=== PATIENT | male | born 1965 | race Caucasian/White ===

== ENCOUNTER → 2016-09-15 | Outpatient (CLI) | payer OTHER ==
[~2016-09-15] MED LIST: CHOL20009 PO; GLUCTAB7 PO; MULT1CHW18 PO; POTA1TAB PO
[2016-09-15 12:08] LABS: BASO % 0.3 %; BASO ABS # 0.02 K/uL (0-0.2); COMPLETE YES; HEMATOCRIT 48.4 % (42-52); IG% 0.6 %; LYMPH % 37.1 %; LYMPH ABS # 2.54 K/uL (1.2-3.4); MEAN CELL VOLUME 91.3 fL (80-100); MEAN CORPUSCULAR HEMOGLOBIN 31.7 pg (25-34); MEAN CORPUSCULAR HGB CONC 34.7 g/dl (32-36); MEAN PLATELET VOLUME 11.7 fL (7.4-10.4); MONO % 7.9 %; NEUT % 52.1 %; PLATELET COUNT 137 K/uL (130-400); WHITE BLOOD COUNT 6.84 K/uL (4.8-10.8)
[2016-09-15 12:27] LABS: URINE APPEARANCE CLEAR (CLEAR); URINE BILIRUBIN NEG (NEG); URINE COLOR YELLOW; URINE EPITHELIAL CELL AUTO 0-5 /lpf (0-5); URINE NITRITE NEG (NEG); UROBILINOGEN NEG (NEG); ZZUR CULT IF INDIC CLEAN CATCH NO
[2016-09-15 12:30] LABS: MANUAL MICROSCOPIC REQUIRED? NO; REVIEW REQ? NO
[2016-09-15 12:38] LABS: ESTIMATED AVERAGE GLUCOSE 108 mg/dl; HA1C FLAG Normal (Normal)
[2016-09-15 12:43] LABS: BLOOD UREA NITROGEN 21 mg/dl (7-18); BUN/CREATININE RATIO 23.6 (10-20); CALCIUM 9.2 mg/dl (8.5-10.1); CARBON DIOXIDE 26 mmol/L (21-32); CHLORIDE 106 mmol/L (98-107); CHOLESTEROL 164 mg/dl (0-200); CREATININE 0.89 mg/dl (0.60-1.40); GLUCOSE 86 mg/dl (70-99); POTASSIUM 4.1 mmol/L (3.5-5.1); SODIUM 141 mmol/L (136-145); TRIGLYCERIDES 123 mg/dl (0-150); VERY LOW DENSITY LIPOPROT CALC 25 mg/dl
[2016-09-15 12:46] LABS: CHOLESTEROL/HDL RATIO 3.5; HDL CHOLESTEROL 47 mg/dl; LDL CHOLESTEROL CALCULATED 92 mg/dl
== END | disposition home or self-care (01) ==
LOC: C.LABBFT 07:42
PROVIDERS: ATTEND Internal Medicine
DX: R73.09 Other abnormal glucose (principal); Z12.11 Encounter for screening for malignant neoplasm of colon; E55.9 Vitamin D deficiency, unspecified

== ENCOUNTER → 2016-10-03 | Outpatient (CLI) | payer OTHER | END | disposition home or self-care (01) | LOC: C.LABBFT 15:38 | PROVIDERS: ATTEND Internal Medicine | DX: N40.0 Benign prostatic hyperplasia without lower urinary tract symptoms (principal) ==

== ENCOUNTER → 2017-10-18 | Outpatient (CLI) | payer OTHER ==
[2017-10-18 12:24] LABS: BASO % 0.1 %; BASO ABS # 0.01 K/uL (0-0.2); EOS % 2.4 %; EOS ABS # 0.17 K/uL (0-0.5); HEMATOCRIT 48.1 % (42-52); HEMOGLOBIN 16.3 g/dL (14.0-18.0); IG# 0.03 K/uL (0.00-0.02); LYMPH % 35.6 %; LYMPH ABS # 2.57 K/uL (1.2-3.4); MEAN CELL VOLUME 91.6 fL (80-100); MEAN CORPUSCULAR HGB CONC 33.9 g/dl (32-36); MEAN PLATELET VOLUME 11.1 fL (7.4-10.4); MONO % 7.6 %; MONO ABS # 0.55 K/uL (0.11-0.59); NEUT % 53.9 %; NEUT ABS # 3.88 K/uL (1.4-6.5); PLATELET COUNT 141 K/uL (130-400); RED CELL DISTRIBUTION WIDTH CV 13.7 % (11.5-14.5); RED CELL DISTRIBUTION WIDTH SD 46.3 fL (36.4-46.3); WHITE BLOOD COUNT 7.21 K/uL (4.8-10.8)
[2017-10-18 12:27] LABS: BLOOD UREA NITROGEN 19 mg/dl (7-18); CALCIUM 8.8 mg/dl (8.5-10.1); CARBON DIOXIDE 29 mmol/L (21-32); CHOLESTEROL 180 mg/dl (0-200); CREATININE 0.97 mg/dl (0.60-1.40); GLUCOSE 82 mg/dl (70-99); POTASSIUM 4.1 mmol/L (3.5-5.1); SODIUM 139 mmol/L (136-145)
[2017-10-18 12:28] LABS: HEMOGLOBIN A1C 5.4 % (4.5-5.6)
[2017-10-18 12:38] LABS: LDL CHOLESTEROL CALCULATED 111 mg/dl
== END | disposition home or self-care (01) ==
LOC: C.LABBFT 07:04
PROVIDERS: ATTEND Internal Medicine
DX: Z13.6 Encounter for screening for cardiovascular disorders (principal); R73.03 Prediabetes; Z12.5 Encounter for screening for malignant neoplasm of prostate; N40.0 Benign prostatic hyperplasia without lower urinary tract symptoms

== ENCOUNTER → 2018-01-31 | Outpatient (CLI) | payer OTHER ==
--- NOTE | 2018-01-31 16:25 | DIAGNOSTIC IMAGING REPORT ---
ORBITS FOR MRI HISTORY: Pre-MRI pre-MRI screening. COMPARISON: None. FINDINGS: There are no radiopaque foreign bodies identified within the orbits. IMPRESSION: No radiopaque foreign bodies identified within the orbits. The above report was generated using voice recognition software. It may contain grammatical, syntax or spelling errors. Electronically signed by: González Bay M.D. 01/31/2018 4:24 PM Dictated Date/Time: 01/31/2018 4:23 PM
--- NOTE | 2018-01-31 17:23 | DIAGNOSTIC IMAGING REPORT ---
R UPPER EXT JOINT WITHOUT CLINICAL HISTORY: RT SHOULDER PAIN,ROTATOR CUFF TEAR pain TECHNIQUE: Multiaxial MRI acquisition COMPARISON STUDY: None FINDINGS: Moderate generalized degenerative change of the glenohumeral joint. There is good contact between the acromion and articular services of the humeral head. There are hypertrophic changes of the acromioclavicular joint creating considerable impingement. Full-thickness tear of the supraspinatus tendon with evidence for musculotendinous retraction and mild fatty replacement of the supraspinatus muscle. Estimated retraction is 3.5 cm with this felt to be chronic. Moderate infraspinatus tendinopathy. Subscapularis tendon is intact. The biceps tendon is intact within the bicipital groove. Mild degenerative substance change of the glenoid labrum. IMPRESSION: 1. Chronic rotator cuff tear with evidence for full-thickness tear of the supraspinatus tendon and associated musculotendinous retraction. 2. Hypertrophic changes acromioclavicular joint creating impingement. 3. Moderate tendinopathy of the infraspinatus tendon with a potential partial thickness tear. 4. Subscapularis tendon is intact. . Moderate generalized degenerative changes of the articular services of the glenohumeral joint. The above report was generated using voice recognition software. It may contain grammatical, syntax or spelling errors. Electronically signed by: González Bay M.D. 01/31/2018 5:22 PM Dictated Date/Time: 01/31/2018 5:18 PM
== END | disposition home or self-care (01) ==
LOC: C.MRIBC 15:49
PROVIDERS: ATTEND Orthopaedic Surgery
DX: S46.011A Strain of muscle(s) and tendon(s) of the rotator cuff of right shoulder, initial encounter (principal); X58.XXXA Exposure to other specified factors, initial encounter

== ENCOUNTER 2025-03-30 18:49 | Inpatient (IN) ==
[2025-03-30 19:30] LABS: Hematocrit (blood only) 52.3 % (42.0-52.0); Hemoglobin 17.5 g/dl (14.0-18.0); Immature Granulocytes # (auto) 0.07 K/uL (0.01-0.20); Immature Granulocytes % (auto) 0.6 %; Mean Corpuscular Hemoglobin 30.4 pg (25.0-34.0); Mean Corpuscular Volume 90.8 fL (80.0-100.0); Platelet Count 201 K/uL (130-400); RDW Standard Deviation 49.3 fL (36.4-46.3); Red Blood Count 5.76 M/uL (4.70-6.10); White Blood Count 12.54 K/ul (4.8-10.8)
[2025-03-30 19:47] LABS: Anion Gap 8.0 (3-11); Blood Urea Nitrogen 24.0 mg/dl (6-23); Carbon Dioxide 30.0 mmol/L (21-32); Chloride 102.0 mmol/L (98-107); Potassium 4.3 mmol/L (3.5-5.1); Sodium 140.0 mmol/L (136-145)
[2025-03-30 19:48] LABS: Alanine Aminotransferase 34.0 U/L (7-52); Albumin Globulin Ratio 1.1 (0.9-2); Albumin Level 4.4 gm/dl (3.4-5.0); Alkaline Phosphatase 88.0 U/L (34-104); Bilirubin,Total 0.7 mg/dl (0.2-1.0); Calcium 9.8 mg/dl (8.6-10.3); Creatinine Clr Calc Pharmacy 66.3 ml/min; Globulin 3.9 gm/dl (2.5-4.0); Glucose 123.0 mg/dl (70-99(Fasting)); Lipase 44.0 U/L (11-82); Total Protein 8.3 gm/dl (6.0-8.3)
[2025-03-30 19:58] LABS: Appearance Urine Clear (Clear); Bacteria Urine Automated 1+ (None Seen); Epithelial Cell Urine Auto 0-2 /hpf (0-2); Glucose Urine UA Negative (Negative); RBC Urine Automated 0-2 /hpf (0-2); WBC Urine Automated >50 /hpf (0-5)
[2025-03-30 19:59] LABS: Cast Urine Automated 0-2 /lpf (0-2)
[2025-03-30] MEDS: SODIUM CHLORIDE 0.9% 1,000 ML IV ONE (20:43)
[2025-03-30] MEDS: cefTRIAXone SODIUM 2,000 MG/50 ML BAG IV STA (20:44)
[2025-03-30] MEDS: PROMETHAZINE 6.25 MG/50.25 ML BAG IV STA (21:00)
[2025-03-30] MEDS: ONDANSETRON INJ 2 MG/ML 2 ML VIAL IV STA (21:02)
[2025-03-30 21:05] LABS: Magnesium 2.3 mg/dl (1.7-2.4)
[2025-03-30] MEDS: MoRPHine SULFATE 4 MG/ML 1 ML CARP\\VIAL IV STA (21:05)
--- NOTE | 2025-03-30 21:07 | Emergency Department Note ---
Impression & Plan SBO (small bowel obstruction), Vomiting, Leukocytosis, Acute UTI, Acute kidney injury ED Provider Note NAME: ROCHELLE WRIGHT AGE: 59 SEX: M : 1965 ARRIVES VIA: Walk-In INFORMANT: [Patient] ED PROVIDER(S): [Vikash Gomez MD] CHIEF COMPLAINT: Abdominal pain, vomiting HISTORY OF PRESENT ILLNESS: The patient is a 59-year-old male whose had 2 days of abdominal bloating, diffuse abdominal pain and vomiting. He has vomited bile. He thought he had food poisoning as he ate some leftovers and afterwards, began to feel poorly. There has been no cough, no fever, no shortness of breath. He does have some loose stools but he would not say it is diarrhea. No urinary complaints. The patient has a history of a previous appendectomy. He still has his gallbladder. PMHx/PSHx/Social Hx: See Below PHYSICAL EXAM: GENERAL: Patient is in no acute distress. HEENT: No acute trauma, normocephalic atraumatic, mucous membranes moist, no nasal congestion. NECK: No stridor, no adenopathy, no meningismus, trachea is midline. LUNGS: Clear to auscultation bilaterally, no wheeze, no rhonchi, breath sounds equal. HEART: Without murmurs gallops or rubs, regular rate and rhythm. ABDOMEN: Firm and distended abdomen. Tender diffusely. EXTREMITIES: No cyanosis, full range of motion of all the joints without pain or difficulty. Mild bilateral pedal edema. NEUROLOGIC: Oriented x 3, no acute motor or sensory deficits, no focal weakness. SKIN: No jaundice, no diaphoresis. DIFFERENTIAL DIAGNOSIS: Bowel obstruction, diverticulitis, urinary retention, UTI, pyelonephritis, pancreatitis, biliary colic, foodborne or viral illness, among others. EMERGENCY DEPARTMENT PROCEDURES: MEDICAL DECISION MAKING: There is a mild leukocytosis, this could be consistent with infection or just the stress of his presentation. There is a normal hemoglobin and platelet count. No coagulopathy. Creatinine was somewhat elevated, consistent with dehydration and mild acute kidney injury. No electrolyte abnormality in need of emergent correction. No concerning liver enzyme elevation. No evidence for pancreatitis. ECG shows a sinus rhythm, no ST elevation. Cardiac enzyme testing x 1 is not consistent with acute cardiac injury. Urinalysis does show findings of infection. Chest x-ray does not show pneumonia or CHF. There was no free air. On exam, the patient did have a diffusely tender distended abdomen. He was not febrile. He was nontoxic-appearing. Abdominal and pelvis CT shows what appears to be a potential small bowel obstruction. Patient received IV saline, 1 L. He was given IV Phenergan and IV Zofran. He was given IV morphine and IV Pepcid. He was given IV ceftriaxone as antibiotic coverage. With the findings of potential bowel obstruction, the patient had an NG tube ordered. This was to be attached to low intermittent suction. I did speak with general surgery. No acute surgical intervention was felt warranted. A medicine admission was recommended. I did speak with the patient and family, I did speak with case management, the on-call hospitalist has been consulted. In short, the patient appears to have a bowel obstruction, he also has a UTI, these findings together warrant a hospital stay and further workup/care. Prior/Outside records/notes reviewed: None ECG per my interpretation: Indication was abdominal pain. The ECG shows a normal sinus rhythm with a rate of 76. There is some baseline artifact present. There is no acute ST elevation, no PVCs. There is a potential old inferior infarct present. QTc is 445. Continuous Cardiac Monitoring per my interpretation: An order was placed for continuous cardiac monitoring. The monitor shows a rate of 72 with normal sinus rhythm. Imaging/x-ray results per my interpretation: Chest x-ray does not show free air or pneumonia. There is a large stomach bubble seen. Chronic Medical/Social conditions affecting care: None Care/Management discussed with: General Surgery-Dr. Ladd. Case management and the on-call hospitalist. Level of care consideration(s): After review of the information above and other included data: --I believe the patient requires escalation of care to admission DISPOSITION: Admission Past Med/Surg History Problem List (Updated 03/30/25 @ 23:13 by Vikash Gomez MD) Acute kidney injury (Acute) Acute UTI (Acute) Leukocytosis (Acute) Vomiting (Acute) SBO (small bowel obstruction) (Acute) Gross hematuria Paroxysmal atrial fibrillation Paroxysmal atrial flutter Nocturnal hypoxemia Severe obstructive sleep apnea Status post ablation of atrial flutter S/P ablation of atrial fibrillation On amiodarone therapy Bradycardia Pulmonary hypertension Mild pulmonary hypertension, RVSP 40 mmHG Obesity (Chronic) History of colon polyps (Chronic) Nephrolithiasis (Acute) Hypertension (Chronic) GERD (gastroesophageal reflux disease) Burning mouth syndrome Cardiomyopathy Mitral regurgitation Aortic regurgitation Atrial fibrillation, permanent Persistent atrial fibrillation Allergic rhinitis (Acute) Benign prostatic hyperplasia without lower urinary tract symptoms (Acute) Internal hemorrhoids (Acute) Pre-diabetes (Acute) DIET CONTROL NO MEDS Elevated prostate specific antigen (PSA) Medical History 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 Parker GERD (gastroesophageal reflux disease) Migraine ON OCCASION Hypertension Colon polyps Kidney stones Surgical History History of esophagogastroduodenoscopy (EGD) History of tooth extraction S/P arthroscopy of right shoulder S/P left knee arthroscopy Status post cervical spinal fusion Hx of vasectomy History of lithotripsy History of colonoscopy History of right inguinal hernia repair History of appendectomy Family History Grandmother Family history of diabetes mellitus Family hx of colon cancer Father Family history of diabetes mellitus Family hx colonic polyps Kidney stones, calcium oxalate Hearing loss Grandfather (Paternal) Lung cancer Unknown Diabetes Coronary heart disease Mother Hypertension CKD (chronic kidney disease) Breast cancer Grandmother (Paternal) Colorectal cancer Grandmother (Maternal) Lupus Grandfather (Maternal) Heart disease Other No family history of adverse response to anesthesia No family history of bleeding disorder Denies family history of Rheumatoid arthritis Stroke Social History Smoking Status: Never smoker Second Hand Exposure: No; Do You Dip or Chew Tobacco: Yes (quite chewing 15 years ago); Hx Alcohol Use: Yes Alcohol type: hard liquor Alcohol Intake Frequency: Monthly or Less Hx Substance Use: No Preferred Language: Liberian Communication Ability: Effective Hearing Ability: Normal Practicing Urologist Required: No Beliefs That Will Affect Care: None marital status: Current Living Situation: Spouse Current Living Situation Comment: AND 2 CHILDREN current occupational status: employed current occupation: Working at [employer]-previously worked [email or web address] How many Children do You have: 2 Feels Safe at Home: Yes Childhood Exposure to Second-Hand Smoke: Yes Diet: regular caffeine: Yes Dental Care, Regularly: No Physical Activity Frequency: Daily Seatbelt Use: always Sunscreen Use: Yes Assistive Devices: Glasses Allergies Allergies Allergy/AdvReac Type Severity Reaction Status Date / Time Penicillins Allergy Intermediate RASH Verified 03/30/25 22:40 lisinopril AdvReac Cough Verified 03/30/25 22:40 Home Meds Home Medications Medication Instructions Recorded Confirmed cholecalciferol (vitamin D3) 50 2,000 units PO QPM 12/11/18 03/30/25 mcg (2,000 unit) capsule zinc acetate 50 mg (zinc) capsule 50 mg PO QPM 02/14/21 03/30/25 furosemide 20 mg tablet 20 mg PO DAILY PRN Fluid Retention 05/27/23 03/30/25 amiodarone 200 mg tablet 200 mg PO QAM 12/16/24 03/30/25 Previous Rx's Medication Instructions Recorded losartan 100 mg tablet 100 mg PO QAM #90 tabs 04/02/24 carvedilol 6.25 mg tablet 6.25 mg PO BID #180 tabs 12/16/24 apixaban 5 mg tablet (Eliquis) 5 mg PO BID #180 tabs 01/10/25 Results & Data (ED) Vital Signs Vital Signs - 24 hr 03/30/25 18:55 03/30/25 20:33 03/30/25 20:34 Temperature 36.6 C Temperature Source Oral Pulse Rate 71 72 Pulse Rate [Apical] 79 Pulse Rhythm [Apical] Regular Pulse Strength [Apical] Normal Respiratory Rate 18 19 Respiratory Effort / Characteristics Non-Labored Spontaneous Non-Labored Spontaneous Respiratory Depth Normal Normal Respiratory Pattern Regular Regular Blood Pressure 169/105 H Blood Pressure [Left Arm] 154/101 H Blood Pressure Mean 126 Blood Pressure Mean [Left Arm] 118 Pulse Oximetry 97 95 Oxygen Delivery Method Room Air Room Air Sepsis Recent Fever Within 48 Hours No Sepsis New/Unexplained Change in Mental Status No Sepsis Action Taken by Nursing No Action Required Home Medications Current Medication List: was personally reviewed by me Laboratory Data Attestation: I reviewed the patient's lab results. 03/30/25 19:08 03/30/25 19:08 Lab Results 03/30/25 Range/Units 19:08 WBC 12.54 H (4.8-10.8) K/ul RBC 5.76 (4.70-6.10) M/uL Hgb 17.5 (14.0-18.0) g/dl Hct 52.3 H (42.0-52.0) % MCV 90.8 (80.0-100.0) fL MCH 30.4 (25.0-34.0) pg MCHC 33.5 (32.0-36.0) g/dL RDW Std Deviation 49.3 H (36.4-46.3) fL RDW Coeff of Kermit 14.6 H (11.5-14.5) % Plt Count 201 (130-400) K/uL MPV 10.8 (9.4-12.4) fL Immature Gran % (Auto) 0.6 % Neut % (Auto) 72.3 % Lymph % (Auto) 19.6 % [place] % (Auto) 6.5 % Eos % (Auto) 0.6 % Baso % (Auto) 0.4 % Neut # (Auto) 9.07 H (1.40-6.50) K/uL Lymph # (Auto) 2.46 (1.20-3.40) K/uL [place] # (Auto) 0.82 H (0.11-0.59) K/uL Eos # (Auto) 0.07 (0.00-0.50) K/uL Baso # (Auto) 0.05 (0.00-0.20) K/uL Immature Gran # (Auto) 0.07 (0.01-0.20) K/uL Sodium 140 (136-145) mmol/L Potassium 4.3 (3.5-5.1) mmol/L Chloride 102 (98-107) mmol/L Carbon Dioxide 30 (21-32) mmol/L Anion Gap 8 (3-11) BUN 24 H (6-23) mg/dl Creatinine 1.46 H (0.6-1.4) mg/dl Est Cr Clr Drug Dosing 66.3 ml/min eGFR 54.71 BUN/Creatinine Ratio 16.4 (10-20) Glucose 123 H (70-99(Fasting)) mg/dl Calcium 9.8 (8.6-10.3) mg/dl Magnesium 2.3 (1.7-2.4) mg/dl Total Bilirubin 0.7 (0.2-1.0) mg/dl AST 25 (13-39) U/L ALT 34 (7-52) U/L Alkaline Phosphatase 88 (34-104) U/L Troponin I High Sens 7.9 (0-20) pg/ml Total Protein 8.3 (6.0-8.3) gm/dl Albumin 4.4 (3.4-5.0) gm/dl Globulin 3.9 (2.5-4.0) gm/dl Albumin/Globulin Ratio 1.1 (0.9-2) Lipase 44 (11-82) U/L Urine Color Yellow Urine Appearance Clear (Clear) Urine pH 5.5 (4.5-7.5) Ur Specific Orange 1.026 (1.000-1.030) Urine Protein 1+ H (Negative) Urine Glucose (UA) Negative (Negative) Urine Ketones Trace H (Negative) Urine Blood Negative (Negative) Urine Nitrite Negative (Negative) Urine Bilirubin Negative (Negative) Urine Urobilinogen Negative (Negative) Ur Leukocyte Esterase 2+ H (Negative) Urine WBC (Auto) >50 H (0-5) /hpf Urine RBC (Auto) 0-2 (0-2) /hpf U Hyaline Cast (Auto) 0-2 (0-2) /lpf U Epithel Cells (Auto) 0-2 (0-2) /hpf Urine Bacteria (Auto) 1+ H (None Seen) Urine Comment Administered Medications Discontinued Medications Sodium Chloride (Nss) 1,000 mls @ 999 mls/hr IV .Q1H1M ONE Stop: 03/30/25 21:30 Last Admin: 03/30/25 20:43 Dose: 999 mls/hr Documented By: mls Ceftriaxone Sodium (Rocephin) 2,000 mg in 50 mls @ 100 mls/hr IV NOW STA Stop: 03/30/25 20:59 Last Admin: 03/30/25 20:44 Dose: 100 mls/hr Documented By: mls Promethazine HCl (Phenergan) 6.25 mg in 50.25 mls @ 201 mls/hr IV NOW STA Stop: 03/30/25 20:56 Last Admin: 03/30/25 21:00 Dose: 201 mls/hr Documented By: mls Famotidine (Pepcid 20mg Iv Push) 20 mg in 5 mls @ 2.5 mls/min IV NOW STA Stop: 03/30/25 20:43 Last Admin: 03/30/25 21:09 Dose: 2.5 mls/min Documented By: shen Ioversol (Optiray 320 100ml) 94 ml IV ONCE ONE Stop: 03/30/25 21:34 Last Admin: 03/30/25 21:33 Dose: 94 ml Documented By: [email or web address] Lidocaine HCl (Lidocaine 4% Inh Soln 4 Ml Btl) 4 ml INH NOW ONE Stop: 03/30/25 22:24 Last Admin: 03/30/25 22:47 Dose: 4 ml Documented By: mlaaron Morphine Sulfate (Morphine Sulfate 4 Mg/Ml 1 Ml Carp\Vial) 4 mg IV NOW STA Stop: 03/30/25 20:43 Last Admin: 03/30/25 21:05 Dose: 4 mg Documented By: mlaaron Ondansetron HCl (Ondansetron Inj 2 Mg/Ml 2 Ml Vial) 4 mg IV NOW STA Stop: 03/30/25 20:43 Last Admin: 03/30/25 21:02 Dose: 4 mg Documented By: shen Imaging Data Radiologist's Impression: Abdomen/Pelvis CT 03/30/25 20:42 Exam(s): CT ABDOMEN + PELVIS With Contrast IV Amt: OPTIRAY 320 94ML EXAM: CT Abdomen and Pelvis With Intravenous Contrast CLINICAL HISTORY: bloated, vomiting. TECHNIQUE: Axial computed tomography images of the abdomen and pelvis with intravenous contrast. CTDI is 27.73 mGy and DLP is 1436.16 mGy-cm. Automated exposure control was utilized for the study. A dose lowering technique was utilized adhering to the principles of ALARA. CONTRAST: Patient received OPTIRAY 320 94ML of IV contrast COMPARISON: CT abdomen and pelvis without contrast 10/15/2024 FINDINGS: Lung bases: Unremarkable. No mass. No consolidation. ABDOMEN: Liver: Unremarkable. No mass. Gallbladder and bile ducts: Unremarkable. No calcified stones. No ductal dilation. Pancreas: Unremarkable. No mass. No ductal dilation. Spleen: Unremarkable. No splenomegaly. Adrenals: Unremarkable. No mass. Kidneys and ureters: Simple cortical cyst involving the inferior aspect of the left kidney, measuring 13.7 cm. The kidneys demonstrate normal enhancement without pyelonephritis or hydronephrosis. Stomach and bowel: At least moderate distention of the stomach with fluid and gas. There is multiple fluid and gas dilated small bowel loops throughout the left abdomen, measuring up to 4 cm in diameter. There is no cleared transition point identified. However, the distal small bowel in the right lower quadrant is asymmetrically decompressed. Minimal stool burden. Diverticulosis without definitive diverticulitis. With fluid distention of the duodenum, there is a focal bandlike area of soft tissue circumferentially noted about the duodenum near the junction of the descending in the distal transverse segment (series 300; images 38- 43). PELVIS: Appendix: The appendix is not clearly delineated. No secondary findings to suggest acute appendicitis. Bladder: Unremarkable. No mass. Reproductive: Unremarkable as visualized. ABDOMEN and PELVIS: Intraperitoneal space: Unremarkable. No free air. No significant fluid collection. Bones/joints: No acute fracture. No dislocation. Soft tissues: Unremarkable. Vasculature: Unremarkable. No abdominal aortic aneurysm. Lymph nodes: Unremarkable. No enlarged lymph nodes. IMPRESSION: 1. At least moderate distention of the stomach with fluid and gas. There is multiple fluid and gas dilated small bowel loops throughout the left abdomen, measuring up to 4 cm in diameter. There is no cleared transition point identified. However, the distal small bowel in the right lower quadrant is asymmetrically decompressed. While this may represent enteritis, a mid small bowel obstruction is not excluded. No pneumatosis or pneumoperitoneum. 2. With fluid distention of the duodenum, there is a focal bandlike area of soft tissue circumferentially noted about the duodenum near the junction of the descending in the distal transverse segment (series 300; images 38-43). Differential consideration includes incidental annular pancreatic tissue. Focal inflammation is considered less likely. Electronically signed by: Gildardo Morgan MD 03/30/25 22:04 PM Chest X-Ray 03/30/25 20:42 Exam(s): XR CXR 1 VIEW EXAM: XR Chest, 1 View CLINICAL HISTORY: Reason for exam: abd pain. TECHNIQUE: Frontal view of the chest. COMPARISON: 09/21/2023 FINDINGS: Lungs: Prominent vascular and interstitial markings centrally, exaggerated by body habitus and technique. No focal consolidation is seen. Pleural space: Unremarkable. No pneumothorax. Heart: The cardiac silhouette is mildly enlarged. Mediastinum: Unremarkable. Normal mediastinal contour. Bones/joints: Unremarkable. No acute fracture. Upper abdomen: Gaseous distention of the stomach. No pneumoperitoneum is seen under the diaphragm. IMPRESSION: 1. The cardiac silhouette is mildly enlarged. 2. Prominent vascular and interstitial markings centrally, exaggerated by body habitus and technique. No focal consolidation is seen. Electronically signed by: Aldo Bertrand MD 03/30/25 21:20 PM Discharge Plan Visit Data Chief Complaint: Illness Stated Complaint: FOOD POSIONING VOMITING GALL BLADDER ED Provider: Vikash Gomez Discharge Problem: SBO (small bowel obstruction), Vomiting, Leukocytosis, Acute UTI, Acute kidney injury Patient Disposition: Admitted As Inpatient Condition: Fair Forms Stand Alone Forms: [employer] Prescriptions Prescriptions: No Action losartan 100 mg tablet 100 mg PO QAM Qty: 90 3RF Eliquis 5 mg tablet 5 mg PO BID Qty: 180 3RF cholecalciferol (vitamin D3) 2,000 unit capsule 2,000 units PO QPM amiodarone 200 mg tablet 200 mg PO QAM carvedilol 6.25 mg tablet 6.25 mg PO BID Qty: 180 3RF Rx Instructions: must administer with a meal/food furosemide 20 mg tablet 20 mg PO DAILY PRN (Reason: Fluid Retention) Rx Instructions: 2 - 3 LB WEIGHT GAIN zinc acetate 50 mg (zinc) Capsule 50 mg PO QPM Referrals Referrals: Nicolas Alvarenga MD [Primary Care Provider] - Discharge Problem: Vomiting Qualifiers: Vomiting type: unspecified Nausea presence: with nausea Qualified Code(s): R 11.2 - Nausea with vomiting, unspecified Leukocytosis Qualifiers: Leukocytosis type: unspecified Qualified Code(s): D72.829 - Elevated white blood cell count, unspecified
[2025-03-30] MEDS: FAMOTIDINE 20MG IV PUSH 20 MG/5 ML SYR IV STA (21:09)
--- NOTE | 2025-03-30 21:21 | XRay Report ---
Exam(s): XR CXR 1 VIEW EXAM: XR Chest, 1 View CLINICAL HISTORY: Reason for exam: abd pain. TECHNIQUE: Frontal view of the chest. COMPARISON: 09/21/2023 FINDINGS: Lungs: Prominent vascular and interstitial markings centrally, exaggerated by body habitus and technique. No focal consolidation is seen. Pleural space: Unremarkable. No pneumothorax. Heart: The cardiac silhouette is mildly enlarged. Mediastinum: Unremarkable. Normal mediastinal contour. Bones/joints: Unremarkable. No acute fracture. Upper abdomen: Gaseous distention of the stomach. No pneumoperitoneum is seen under the diaphragm. IMPRESSION: 1. The cardiac silhouette is mildly enlarged. 2. Prominent vascular and interstitial markings centrally, exaggerated by body habitus and technique. No focal consolidation is seen. Electronically signed by: Aldo Bertrand MD 03/30/25 21:20 PM
[2025-03-30] MEDS: OPTIRAY 320 100ml IV ONE (21:33)
--- NOTE | 2025-03-30 22:05 | CT Scan Report ---
Exam(s): CT ABDOMEN + PELVIS With Contrast IV Amt: OPTIRAY 320 94ML EXAM: CT Abdomen and Pelvis With Intravenous Contrast CLINICAL HISTORY: bloated, vomiting. TECHNIQUE: Axial computed tomography images of the abdomen and pelvis with intravenous contrast. CTDI is 27.73 mGy and DLP is 1436.16 mGy-cm. Automated exposure control was utilized for the study. A dose lowering technique was utilized adhering to the principles of ALARA. CONTRAST: Patient received OPTIRAY 320 94ML of IV contrast COMPARISON: CT abdomen and pelvis without contrast 10/15/2024 FINDINGS: Lung bases: Unremarkable. No mass. No consolidation. ABDOMEN: Liver: Unremarkable. No mass. Gallbladder and bile ducts: Unremarkable. No calcified stones. No ductal dilation. Pancreas: Unremarkable. No mass. No ductal dilation. Spleen: Unremarkable. No splenomegaly. Adrenals: Unremarkable. No mass. Kidneys and ureters: Simple cortical cyst involving the inferior aspect of the left kidney, measuring 13.7 cm. The kidneys demonstrate normal enhancement without pyelonephritis or hydronephrosis. Stomach and bowel: At least moderate distention of the stomach with fluid and gas. There is multiple fluid and gas dilated small bowel loops throughout the left abdomen, measuring up to 4 cm in diameter. There is no cleared transition point identified. However, the distal small bowel in the right lower quadrant is asymmetrically decompressed. Minimal stool burden. Diverticulosis without definitive diverticulitis. With fluid distention of the duodenum, there is a focal bandlike area of soft tissue circumferentially noted about the duodenum near the junction of the descending in the distal transverse segment (series 300; images 38- 43). PELVIS: Appendix: The appendix is not clearly delineated. No secondary findings to suggest acute appendicitis. Bladder: Unremarkable. No mass. Reproductive: Unremarkable as visualized. ABDOMEN and PELVIS: Intraperitoneal space: Unremarkable. No free air. No significant fluid collection. Bones/joints: No acute fracture. No dislocation. Soft tissues: Unremarkable. Vasculature: Unremarkable. No abdominal aortic aneurysm. Lymph nodes: Unremarkable. No enlarged lymph nodes. IMPRESSION: 1. At least moderate distention of the stomach with fluid and gas. There is multiple fluid and gas dilated small bowel loops throughout the left abdomen, measuring up to 4 cm in diameter. There is no cleared transition point identified. However, the distal small bowel in the right lower quadrant is asymmetrically decompressed. While this may represent enteritis, a mid small bowel obstruction is not excluded. No pneumatosis or pneumoperitoneum. 2. With fluid distention of the duodenum, there is a focal bandlike area of soft tissue circumferentially noted about the duodenum near the junction of the descending in the distal transverse segment (series 300; images 38-43). Differential consideration includes incidental annular pancreatic tissue. Focal inflammation is considered less likely. Electronically signed by: Gildardo Morgan MD 03/30/25 22:04 PM
[2025-03-30] MEDS: LIDOCAINE 4% INH SOLN 4 ML BTL INH ONE (22:47)
--- NOTE | 2025-03-30 23:29 | History & Physical Report ---
Date of Service March 30, 2025 Assessment & Plan (1) SBO (small bowel obstruction): (2) Acute UTI: (3) Acute kidney injury: (4) Paroxysmal atrial fibrillation: Plan The patient is a 59-year-old male with a past medical history including paroxysmal atrial fibrillation, paroxysmal atrial flutter, nocturnal hypoxemia, severe AIDA, status post ablation of atrial flutter, status post ablation of atrial fibrillation, pulmonary hypertension, obesity, hypertension, GERD, cardiomyopathy, BPH with LUTS, and aortic and mitral regurgitation. The patient presents to the emergency department with 2 days of diffuse abdominal pain, abdominal bloating, vomiting, including vomiting bile. He was concerned that he might have food poisoning, as he ate some leftovers that were borderline, and shortly after that began to feel poorly. He denies any cough, shortness of breath, fevers or chills. He denies any recent travels or sick exposures. He has a history of a previous appendectomy. He denies any previous occurrences of this type of discomfort. In the emergency department, workup included a CT scan of abdomen pelvis which was consistent with a partial small bowel obstruction. Laboratories included a elevated white blood cell count of 12.54, and elevated creatinine 1.46, baseline 1.09. EKG showed atrial fibrillation with controlled rate. Urinalysis suggested possible urinary tract infection with a history of previous urinary tract infections. From the ED the patient received the following: Normal saline 1 L fluid bolus, ceftriaxone 2 g IV, morphine 4 mg IV, Zofran 4 mg IV, Phenergan 6.25 mg IV, and famotidine 20 mg IV. The [facility] and [facility]. Small bowel obstruction- N.p.o. Acetaminophen 1 g IV every 8 hours as needed for mild pain or fever Morphine 2 mg IV every 3 hours as needed for moderate pain Morphine 4 mg IV every 3 hours as needed for severe pain Pantoprazole 40 mg IV daily Zofran 4 mg IV every 6 hours as needed Cefepime 2 g IV every 12 hours NSS at 100 mL/h x 2 L Consult general surgery Paroxysmal atrial fibrillation and flutter/status post ablation for atrial fibrillation/status post ablation for atrial flutter- N.p.o. as noted above Change carvedilol to Lopressor 5 mg IV every 4 hours holding for heart rate less than 60 or systolic blood pressure less than 110 Amiodarone 200 mg p.o. daily will be held, and if it looks like he will be off of it for a while, we started on amiodarone infusion at 0.5 Hold apixaban. If he is going to be off the anticoagulation for more than a day, would look at starting heparin drip at therapeutic dose. Hold furosemide and losartan Acute kidney injury- Creatinine 1.46 with base 1.09 IV fluids as noted above, recheck laboratories every morning Urinary tract infection- Previous infections with pansensitive E. coli on 11/01/2023 and 01/10/2024. Previous infection with E. coli resistant to cefuroxime on 07/10/2024. Cefepime IV as noted above History of Present Illness Chief Complaint: The patient presents to the emergency department with 2 days of diffuse abdominal pain, abdominal bloating, vomiting, including vomiting bile. He was concerned that he might have food poisoning, as he ate some leftovers that were borderline, and shortly after that began to feel poorly. He denies any cough, shortness of breath, fevers or chills. He denies any recent travels or sick exposures. He has a history of a previous appendectomy. He denies any previous occurrences of this type of discomfort. In the emergency department, workup included a CT scan of abdomen pelvis which was consistent with a partial small bowel obstruction. Laboratories included a elevated white blood cell count of 12.54, and elevated creatinine 1.46, baseline 1.09. EKG showed atrial fibrillation with controlled rate. Urinalysis suggested possible urinary tract infection with a history of previous urinary tract infections. From the ED the patient received the following: Normal saline 1 L fluid bolus, ceftriaxone 2 g IV, morphine 4 mg IV, Zofran 4 mg IV, Phenergan 6.25 mg IV, and famotidine 20 mg IV. Primary Care Provider: Nicolas Alvarenga MD The patient is a 59-year-old male with a past medical history including paroxysmal atrial fibrillation, paroxysmal atrial flutter, nocturnal hypoxemia, severe AIDA, status post ablation of atrial flutter, status post ablation of atrial fibrillation, pulmonary hypertension, obesity, hypertension, GERD, cardiomyopathy, BPH with LUTS, and aortic and mitral regurgitation. The patient presents to the emergency department with 2 days of diffuse abdominal pain, abdominal bloating, vomiting, including vomiting bile. He was concerned that he might have food poisoning, as he ate some leftovers that were borderline, and shortly after that began to feel poorly. He denies any cough, shortness of breath, fevers or chills. He denies any recent travels or sick exposures. He has a history of a previous appendectomy. He denies any previous occurrences of this type of discomfort. In the emergency department, workup included a CT scan of abdomen pelvis which was consistent with a partial small bowel obstruction. Laboratories included a elevated white blood cell count of 12.54, and elevated creatinine 1.46, baseline 1.09. EKG showed atrial fibrillation with controlled rate. Urinalysis suggested possible urinary tract infection with a history of previous urinary tract infections. From the ED the patient received the following: Normal saline 1 L fluid bolus, ceftriaxone 2 g IV, morphine 4 mg IV, Zofran 4 mg IV, Phenergan 6.25 mg IV, and famotidine 20 mg IV. The patient was [facility] and [facility]. Allergies Allergy/AdvReac Type Severity Reaction Status Date / Time Penicillins Allergy Intermediate RASH Verified 03/30/25 22:40 lisinopril AdvReac Cough Verified 03/30/25 22:40 Home Medications Medication Instructions Recorded Confirmed Type cholecalciferol (vitamin D3) 50 2,000 units PO QPM 12/11/18 03/30/25 History mcg (2,000 unit) capsule zinc acetate 50 mg (zinc) capsule 50 mg PO QPM 02/14/21 03/30/25 History furosemide 20 mg tablet 20 mg PO DAILY PRN Fluid Retention 05/27/23 03/30/25 History losartan 100 mg tablet 100 mg PO QAM #90 tabs 04/02/24 03/30/25 Rx amiodarone 200 mg tablet 200 mg PO QAM 12/16/24 03/30/25 History carvedilol 6.25 mg tablet 6.25 mg PO BID #180 tabs 12/16/24 03/30/25 Rx apixaban 5 mg tablet (Eliquis) 5 mg PO BID #180 tabs 01/10/25 03/30/25 Rx Past Med/Surg History Problem List (Updated 03/31/25 @ 00:42 by Background Daemon) Acute kidney injury (Acute) Acute UTI (Acute) Leukocytosis (Acute) Vomiting (Acute) SBO (small bowel obstruction) (Acute) Gross hematuria Paroxysmal atrial fibrillation Paroxysmal atrial flutter Nocturnal hypoxemia Severe obstructive sleep apnea Status post ablation of atrial flutter S/P ablation of atrial fibrillation On amiodarone therapy Bradycardia Pulmonary hypertension Mild pulmonary hypertension, RVSP 40 mmHG Obesity (Chronic) History of colon polyps (Chronic) Nephrolithiasis (Acute) Hypertension (Chronic) GERD (gastroesophageal reflux disease) Burning mouth syndrome Cardiomyopathy Mitral regurgitation Aortic regurgitation Atrial fibrillation, permanent Persistent atrial fibrillation Allergic rhinitis (Acute) Benign prostatic hyperplasia without lower urinary tract symptoms (Acute) Internal hemorrhoids (Acute) Pre-diabetes (Acute) DIET CONTROL NO MEDS Elevated prostate specific antigen (PSA) Medical History 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 Parker GERD (gastroesophageal reflux disease) Migraine ON OCCASION Hypertension Colon polyps Kidney stones Surgical History History of esophagogastroduodenoscopy (EGD) History of tooth extraction S/P arthroscopy of right shoulder S/P left knee arthroscopy Status post cervical spinal fusion Hx of vasectomy History of lithotripsy History of colonoscopy History of right inguinal hernia repair History of appendectomy Family History Grandmother Family history of diabetes mellitus Family hx of colon cancer Father Family history of diabetes mellitus Family hx colonic polyps Kidney stones, calcium oxalate Hearing loss Grandfather (Paternal) Lung cancer Unknown Diabetes Coronary heart disease Mother Hypertension CKD (chronic kidney disease) Breast cancer Grandmother (Paternal) Colorectal cancer Grandmother (Maternal) Lupus Grandfather (Maternal) Heart disease Other No family history of adverse response to anesthesia No family history of bleeding disorder Denies family history of Rheumatoid arthritis Stroke Social History Smoking Status: Never smoker Second Hand Exposure: No; Do You Dip or Chew Tobacco: Yes (quite chewing 15 years ago); Hx Alcohol Use: No Hx Substance Use: No Preferred Language: Peruvian Communication Ability: Effective Hearing Ability: Normal Conservation Coordinator Required: No Beliefs That Will Affect Care: None marital status: Current Living Situation: Spouse Current Living Situation Comment: AND 2 CHILDREN current occupational status: employed current occupation: Working at [employer]-previously worked [employer] How many Children do You have: 2 Other Information That Helps Us Care for You: No Feels Safe at Home: Yes Safety Concerns: Feels Safe At This Time Childhood Exposure to Second-Hand Smoke: Yes Diet: regular caffeine: Yes Dental Care, Regularly: No Physical Activity Frequency: Daily Seatbelt Use: always Sunscreen Use: Yes Assistive Devices: CPAP Review of Systems Review of Systems: The patient denies chest pain, palpitations, shortness of breath, dyspnea on exertion, cough, lower extremity swelling, sore throat, fevers, chills, sweats, blood in urine or stool, lightheadedness, dizziness, headache, memory loss, loss of consciousness, rash, abnormal bruising or bleeding, imbalance, focal weakness, numbness or tingling in arms or legs, generalized arthralgias or myalgias, back or neck pain, or night sweats. The review of systems is otherwise negative other than for that already noted above, and at least 10 systems have been reviewed. Physical Exam Physical Exam: The patient is awake, alert and oriented 3, well developed and well nourished, normocephalic and atraumatic, lying in bed and in no acute distress. HEENT--PERRL, EOMI, mucous membranes and oropharynx dry. Neck--supple. No JVD. No bruits. Thyroid normal, trachea midline, no adenopathy. Heart--normal S1 and S2. No murmurs, rubs or gallops. Lungs--clear bilaterally, no respiratory distress, no accessory muscle use. Abdomen--high-pitched bowel sounds. Moderately distended and tympanitic. Extremities--no cyanosis or clubbing. No edema. Dermatologic--normal skin turgor, normal color, no abnormal lymph nodes, no rash. Neurologic--cranial nerves II through XII grossly intact. Rheumatologic--normal range of motion. Psychiatric--normal affect. Results & Data Results & Data Vital Signs (Past 12 Hours) Vital Signs Temp Pulse Pulse Resp BP BP Pulse Ox 03/30/25 20:34 72 03/30/25 20:33 79 19 154/101 H 95 03/30/25 18:55 36.6 C 71 18 169/105 H 97 O2 Del Method 03/30/25 20:34 03/30/25 20:33 Room Air 03/30/25 18:55 Room Air Laboratory Results Laboratory Results WBC 12.54 K/ul (4.8-10.8) H 03/30/25 19:08 RBC 5.76 M/uL (4.70-6.10) 03/30/25 19:08 Hgb 17.5 g/dl (14.0-18.0) 03/30/25 19:08 Hct 52.3 % (42.0-52.0) H 03/30/25 19:08 MCV 90.8 fL (80.0-100.0) 03/30/25 19:08 MCH 30.4 pg (25.0-34.0) 03/30/25 19:08 MCHC 33.5 g/dL (32.0-36.0) 03/30/25 19:08 RDW Std Deviation 49.3 fL (36.4-46.3) H 03/30/25 19:08 RDW Coeff of Kermit 14.6 % (11.5-14.5) H 03/30/25 19:08 Plt Count 201 K/uL (130-400) 03/30/25 19:08 MPV 10.8 fL (9.4-12.4) 03/30/25 19:08 Immature Gran % (Auto) 0.6 % 03/30/25 19:08 Neut % (Auto) 72.3 % 03/30/25 19:08 Lymph % (Auto) 19.6 % 03/30/25 19:08 [place] % (Auto) 6.5 % 03/30/25 19:08 Eos % (Auto) 0.6 % 03/30/25 19:08 Baso % (Auto) 0.4 % 03/30/25 19:08 Neut # (Auto) 9.07 K/uL (1.40-6.50) H 03/30/25 19:08 Lymph # (Auto) 2.46 K/uL (1.20-3.40) 03/30/25 19:08 [place] # (Auto) 0.82 K/uL (0.11-0.59) H 03/30/25 19:08 Eos # (Auto) 0.07 K/uL (0.00-0.50) 03/30/25 19:08 Baso # (Auto) 0.05 K/uL (0.00-0.20) 03/30/25 19:08 Immature Gran # (Auto) 0.07 K/uL (0.01-0.20) 03/30/25 19:08 Sodium 140 mmol/L (136-145) 03/30/25 19:08 Potassium 4.3 mmol/L (3.5-5.1) 03/30/25 19:08 Chloride 102 mmol/L (98-107) 03/30/25 19:08 Carbon Dioxide 30 mmol/L (21-32) 03/30/25 19:08 Anion Gap 8 (3-11) 03/30/25 19:08 BUN 24 mg/dl (6-23) H 03/30/25 19:08 Creatinine 1.46 mg/dl (0.6-1.4) H 03/30/25 19:08 Est Cr Clr Drug Dosing 66.3 ml/min 03/30/25 19:08 eGFR 54.71 03/30/25 19:08 BUN/Creatinine Ratio 16.4 (10-20) 03/30/25 19:08 Glucose 123 mg/dl (70-99(Fasting)) H 03/30/25 19:08 Calcium 9.8 mg/dl (8.6-10.3) 03/30/25 19:08 Magnesium 2.3 mg/dl (1.7-2.4) 03/30/25 19:08 Total Bilirubin 0.7 mg/dl (0.2-1.0) 03/30/25 19:08 AST 25 U/L (13-39) 03/30/25 19:08 ALT 34 U/L (7-52) 03/30/25 19:08 Alkaline Phosphatase 88 U/L (34-104) 03/30/25 19:08 Troponin I High Sens 7.9 pg/ml (0-20) 03/30/25 19:08 Total Protein 8.3 gm/dl (6.0-8.3) 03/30/25 19:08 Albumin 4.4 gm/dl (3.4-5.0) 03/30/25 19:08 Globulin 3.9 gm/dl (2.5-4.0) 03/30/25 19:08 Albumin/Globulin Ratio 1.1 (0.9-2) 03/30/25 19:08 Lipase 44 U/L (11-82) 03/30/25 19:08 Urine Color Yellow 03/30/25 19:08 Urine Appearance Clear (Clear) 03/30/25 19:08 Urine pH 5.5 (4.5-7.5) 03/30/25 19:08 Ur Specific [place] 1.026 (1.000-1.030) 03/30/25 19:08 Urine Protein 1+ (Negative) H 03/30/25 19:08 Urine Glucose (UA) Negative (Negative) 03/30/25 19:08 Urine Ketones Trace (Negative) H 03/30/25 19:08 Urine Blood Negative (Negative) 03/30/25 19:08 Urine Nitrite Negative (Negative) 03/30/25 19:08 Urine Bilirubin Negative (Negative) 03/30/25 19:08 Urine Urobilinogen Negative (Negative) 03/30/25 19:08 Ur Leukocyte Esterase 2+ (Negative) H 03/30/25 19:08 Urine WBC (Auto) >50 /hpf (0-5) H 03/30/25 19:08 Urine RBC (Auto) 0-2 /hpf (0-2) 03/30/25 19:08 U Hyaline Cast (Auto) 0-2 /lpf (0-2) 03/30/25 19:08 U Epithel Cells (Auto) 0-2 /hpf (0-2) 03/30/25 19:08 Urine Bacteria (Auto) 1+ (None Seen) H 03/30/25 19:08 Urine Comment 03/30/25 19:08 Impressions Abdomen/Pelvis CT 03/30/25 20:42 Exam(s): CT ABDOMEN + PELVIS With Contrast IV Amt: OPTIRAY 320 94ML EXAM: CT Abdomen and Pelvis With Intravenous Contrast CLINICAL HISTORY: bloated, vomiting. TECHNIQUE: Axial computed tomography images of the abdomen and pelvis with intravenous contrast. CTDI is 27.73 mGy and DLP is 1436.16 mGy-cm. Automated exposure control was utilized for the study. A dose lowering technique was utilized adhering to the principles of ALARA. CONTRAST: Patient received OPTIRAY 320 94ML of IV contrast COMPARISON: CT abdomen and pelvis without contrast 10/15/2024 FINDINGS: Lung bases: Unremarkable. No mass. No consolidation. ABDOMEN: Liver: Unremarkable. No mass. Gallbladder and bile ducts: Unremarkable. No calcified stones. No ductal dilation. Pancreas: Unremarkable. No mass. No ductal dilation. Spleen: Unremarkable. No splenomegaly. Adrenals: Unremarkable. No mass. Kidneys and ureters: Simple cortical cyst involving the inferior aspect of the left kidney, measuring 13.7 cm. The kidneys demonstrate normal enhancement without pyelonephritis or hydronephrosis. Stomach and bowel: At least moderate distention of the stomach with fluid and gas. There is multiple fluid and gas dilated small bowel loops throughout the left abdomen, measuring up to 4 cm in diameter. There is no cleared transition point identified. However, the distal small bowel in the right lower quadrant is asymmetrically decompressed. Minimal stool burden. Diverticulosis without definitive diverticulitis. With fluid distention of the duodenum, there is a focal bandlike area of soft tissue circumferentially noted about the duodenum near the junction of the descending in the distal transverse segment (series 300; images 38- 43). PELVIS: Appendix: The appendix is not clearly delineated. No secondary findings to suggest acute appendicitis. Bladder: Unremarkable. No mass. Reproductive: Unremarkable as visualized. ABDOMEN and PELVIS: Intraperitoneal space: Unremarkable. No free air. No significant fluid collection. Bones/joints: No acute fracture. No dislocation. Soft tissues: Unremarkable. Vasculature: Unremarkable. No abdominal aortic aneurysm. Lymph nodes: Unremarkable. No enlarged lymph nodes. IMPRESSION: 1. At least moderate distention of the stomach with fluid and gas. There is multiple fluid and gas dilated small bowel loops throughout the left abdomen, measuring up to 4 cm in diameter. There is no cleared transition point identified. However, the distal small bowel in the right lower quadrant is asymmetrically decompressed. While this may represent enteritis, a mid small bowel obstruction is not excluded. No pneumatosis or pneumoperitoneum. 2. With fluid distention of the duodenum, there is a focal bandlike area of soft tissue circumferentially noted about the duodenum near the junction of the descending in the distal transverse segment (series 300; images 38-43). Differential consideration includes incidental annular pancreatic tissue. Focal inflammation is considered less likely. Electronically signed by: Gildardo Morgan MD 03/30/25 22:04 PM Chest X-Ray 03/30/25 20:42 Exam(s): XR CXR 1 VIEW EXAM: XR Chest, 1 View CLINICAL HISTORY: Reason for exam: abd pain. TECHNIQUE: Frontal view of the chest. COMPARISON: 09/21/2023 FINDINGS: Lungs: Prominent vascular and interstitial markings centrally, exaggerated by body habitus and technique. No focal consolidation is seen. Pleural space: Unremarkable. No pneumothorax. Heart: The cardiac silhouette is mildly enlarged. Mediastinum: Unremarkable. Normal mediastinal contour. Bones/joints: Unremarkable. No acute fracture. Upper abdomen: Gaseous distention of the stomach. No pneumoperitoneum is seen under the diaphragm. IMPRESSION: 1. The cardiac silhouette is mildly enlarged. 2. Prominent vascular and interstitial markings centrally, exaggerated by body habitus and technique. No focal consolidation is seen. Electronically signed by: Aldo Bertrand MD 03/30/25 21:20 PM KUB X-Ray 03/30/25 23:03 Exam(s): XR KUB EXAM: XR Abdomen, 1 View CLINICAL HISTORY: tube placement. TECHNIQUE: Frontal supine view of the abdomen/pelvis. COMPARISON: No relevant prior studies available. FINDINGS: Gastrointestinal tract: Diffuse abnormal gas dilated small bowel throughout the abdomen and pelvis. Less prominent bowel gas in the right lower quadrant and involving the descending colon. Bones/joints: Unremarkable. No acute fracture. Tubes, lines and devices: The nasogastric tube terminates in the distal thoracic esophagus. IMPRESSION: The nasogastric tube terminates in the distal thoracic esophagus. Recommend advancement 10-12 cm to position of the tube within the stomach. Electronically signed by: Gildardo Morgan MD 03/30/25 23:51 PM Code Status & VTE Plan Code Status Full code VTE Prophylaxis Plan VTE Prophylaxis will be ordered: Yes PG Care Time/CCT Total # of Minutes Spent Total Time Spent with Patient: Total time spent is greater than 50% in coordination of care (as documented) at patient's floor/unit and/or counseling patient: Coding Level of Care Code 19283 INT INP/OBS CARE 3/75MIN Diagnoses SBO (small bowel obstruction) K56.609 Acute UTI N39.0 Acute kidney injury N17.9 Paroxysmal atrial fibrillation I48.0
[2025-03-30] MEDS: BENZOCAINE/TETRACAIN/BUTAM 50 APPLN/5 GM CAN EXT STA (23:34)
--- NOTE | 2025-03-30 23:52 | XRay Report ---
Exam(s): XR KUB EXAM: XR Abdomen, 1 View CLINICAL HISTORY: tube placement. TECHNIQUE: Frontal supine view of the abdomen/pelvis. COMPARISON: No relevant prior studies available. FINDINGS: Gastrointestinal tract: Diffuse abnormal gas dilated small bowel throughout the abdomen and pelvis. Less prominent bowel gas in the right lower quadrant and involving the descending colon. Bones/joints: Unremarkable. No acute fracture. Tubes, lines and devices: The nasogastric tube terminates in the distal thoracic esophagus. IMPRESSION: The nasogastric tube terminates in the distal thoracic esophagus. Recommend advancement 10-12 cm to position of the tube within the stomach. Electronically signed by: Gildardo Morgan MD 03/30/25 23:51 PM
[2025-03-30] MEDS: SODIUM CHLORIDE 0.9% 1,000 ML IV SCH (23:55)
[2025-03-31] MEDS ORDERED: MoRPHine SULFATE 4 MG/ML 1 ML CARP\\VIAL IV PRN ×2 (01:01→01:16)
[2025-03-31] MEDS ORDERED: ONDANSETRON INJ 2 MG/ML 2 ML VIAL IV PRN (01:01)
[2025-03-31] MEDS: PANTOprazole 40 MG/10 ML SYR IV SCH (01:50)
[2025-03-31] MEDS: ACETAMINOPHEN 1000 MG/100 ML IV IV PRN (01:50)
[2025-03-31] MEDS: CEFEPIME 2000MG 2,000 MG/20 ML SYR IV SCH (02:38)
[2025-03-31 06:17] LABS: Hematocrit (blood only) 46.1 % (42.0-52.0); Hemoglobin 15.5 g/dl (14.0-18.0); Immature Granulocytes # (auto) 0.06 K/uL (0.01-0.20); Immature Granulocytes % (auto) 0.5 %; Mean Corpuscular Hemoglobin 30.4 pg (25.0-34.0); Mean Corpuscular Volume 90.4 fL (80.0-100.0); Platelet Count 168 K/uL (130-400); RDW Standard Deviation 48.8 fL (36.4-46.3); Red Blood Count 5.10 M/uL (4.70-6.10); White Blood Count 11.00 K/ul (4.8-10.8)
[2025-03-31 06:43] LABS: Alanine Aminotransferase 25.0 U/L (7-52); Albumin Globulin Ratio 1.3 (0.9-2); Albumin Level 3.8 gm/dl (3.4-5.0); Alkaline Phosphatase 68.0 U/L (34-104); Anion Gap 10.0 (3-11); Bilirubin,Total 0.6 mg/dl (0.2-1.0); Blood Urea Nitrogen 22.0 mg/dl (6-23); Calcium 8.7 mg/dl (8.6-10.3); Carbon Dioxide 24.0 mmol/L (21-32); Chloride 106.0 mmol/L (98-107); Creatinine Clr Calc Pharmacy 72.4 ml/min; Globulin 3.0 gm/dl (2.5-4.0); Glucose 108.0 mg/dl (70-99(Fasting)); Magnesium 2.1 mg/dl (1.7-2.4); Potassium 3.9 mmol/L (3.5-5.1); Sodium 140.0 mmol/L (136-145); Total Protein 6.8 gm/dl (6.0-8.3)
[2025-03-31 06:56] LABS: INR 1.1 (0.9-1.1); Partial Thromboplastin Time 29 Seconds (21-31); Prothrombin Time 11.2 Seconds (9.0-12.0)
[2025-03-31] MEDS ORDERED: COUGH DROP (SUGAR FREE) LOZ 24 LOZ/1 BOX BUCCAL PRN (07:52)
[2025-03-31] MEDS ORDERED: CHLORASEPTIC (PHENOL) 1.4% SOLN 180 ML BTL MT PRN (07:52)
--- NOTE | 2025-03-31 08:46 | Surgery Consultation ---
Date of Consultation March 31, 2025 Assessment & Plan (1) SBO (small bowel obstruction): (2) Vomiting: Plan 59 yo male with 2 day history of abdominal pain, bloating, nausea, vomiting, and diarrhea after eating leftover foods presented to ED with increasing abdominal pain and distention. No prior history of SBO, history of open appendectomy for perforated appendicitis in his 30's and incisional hernia repair with mesh. CT scan with distended stomach and small bowel, no clear transition point. NGT with 800cc output since placement. Abodminal pain and distention now resolved, passing flatus and small bowel movement. No acute surgical intervention required. He is already feeling better after NGT placement and has return of bowel function. Clamp NGT, check residual in 4 hours if low can remove and start clear liquids. Encouraged ambulation. Continue medical management Discussed with Dr. Ladd who agrees with above. History of Present Illness Reason for Consultation: enteritis vs PSBO Requesting Physician: Dr. Tiffany MD Attending Physician: Inderjit Allen MD History of Present Illness Enrique is a 59 yo male with history of paroxysmal atrial fibrillation, paroxysmal atrial flutter, nocturnal hypoxemia, severe AIDA, status post ablation of atrial flutter, status post ablation of atrial fibrillation, pulmonary hypertension, obesity, hypertension, GERD, cardiomyopathy, BPH with LUTS, and aortic and mitral regurgitation who presented to ED with history of abdominal pain, bloating, nausea, bilious vomiting, and diarrhea who presented to ED with worsening pain. Had leftovers Monday evening and then starting feeling unwell after. States he had multiple episodes of bilious vomiting and then felt better on Monday and then pain started again yesterday. History of appendectomy in his 30's and then mesh repair of incisional hernia. He currently states he is feeling better. passing gas and abdominal pain and bloating have resolved since NGT was placed. Allergies Allergy/AdvReac Type Severity Reaction Status Date / Time Penicillins Allergy Intermediate RASH Verified 03/30/25 22:40 lisinopril AdvReac Cough Verified 03/30/25 22:40 Home Medications Medication Instructions Recorded Confirmed Type cholecalciferol (vitamin D3) 50 2,000 units PO QPM 12/11/18 03/30/25 History mcg (2,000 unit) capsule zinc acetate 50 mg (zinc) capsule 50 mg PO QPM 02/14/21 03/30/25 History furosemide 20 mg tablet 20 mg PO DAILY PRN Fluid Retention 05/27/23 03/30/25 History losartan 100 mg tablet 100 mg PO QAM #90 tabs 04/02/24 03/30/25 Rx amiodarone 200 mg tablet 200 mg PO QAM 12/16/24 03/30/25 History carvedilol 6.25 mg tablet 6.25 mg PO BID #180 tabs 12/16/24 03/30/25 Rx apixaban 5 mg tablet (Eliquis) 5 mg PO BID #180 tabs 01/10/25 03/30/25 Rx Patient History Medical History 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 Parker GERD (gastroesophageal reflux disease) Migraine ON OCCASION Hypertension Colon polyps Kidney stones Surgical History History of esophagogastroduodenoscopy (EGD) History of tooth extraction S/P arthroscopy of right shoulder S/P left knee arthroscopy Status post cervical spinal fusion Hx of vasectomy History of lithotripsy History of colonoscopy History of right inguinal hernia repair History of appendectomy Family History Grandmother Family history of diabetes mellitus Family hx of colon cancer Father Family history of diabetes mellitus Family hx colonic polyps Kidney stones, calcium oxalate Hearing loss Grandfather (Paternal) Lung cancer Unknown Diabetes Coronary heart disease Mother Hypertension CKD (chronic kidney disease) Breast cancer Grandmother (Paternal) Colorectal cancer Grandmother (Maternal) Lupus Grandfather (Maternal) Heart disease Other No family history of adverse response to anesthesia No family history of bleeding disorder Denies family history of Rheumatoid arthritis Stroke Social History Smoking Status: Never smoker Second Hand Exposure: No; Do You Dip or Chew Tobacco: Yes (quite chewing 15 years ago); Hx Alcohol Use: No Hx Substance Use: No Preferred Language: Maldivian Communication Ability: Effective Hearing Ability: Normal Purchasing Expeditor Required: No Beliefs That Will Affect Care: None marital status: Current Living Situation: Spouse Current Living Situation Comment: AND 2 CHILDREN current occupational status: employed current occupation: Working at [employer]-previously worked [employer] How many Children do You have: 2 Other Information That Helps Us Care for You: No Feels Safe at Home: Yes Safety Concerns: Feels Safe At This Time Childhood Exposure to Second-Hand Smoke: Yes Diet: regular caffeine: Yes Dental Care, Regularly: No Physical Activity Frequency: Daily Seatbelt Use: always Sunscreen Use: Yes Assistive Devices: CPAP Review of Systems Review of Systems: All systems reviewed & are unremarkable except as noted in HPI & below Physical Exam Constitutional: WD/WN, vitals as above + morbidly obese, cooperative and comfortable; no acute distress and not ill appearing Respiratory: normal respiratory effort, lungs clear to auscultation Cardiovascular: RRR, no murmur, no edema Gastrointestinal (Abdomen): Inspection/Auscultation: abdomen normal to inspection and + abdominal surgical scar (RLQ scar); abdomen not distended Percussion/Palpation: + abdomen tender (mild tenderness in left mid abdomen) and abdomen soft; no guarding, abdomen not rigid and abdomen not firm NGT with brown/clear output Skin: no rashes, warm and dry Results & Data Vital Signs (Past 12 Hours) Vital Signs Temp Pulse Pulse Resp BP BP Pulse Ox 03/31/25 04:30 88 03/31/25 02:47 77 16 129/85 95 03/31/25 01:11 36.7 C 82 16 170/105 H 95 03/31/25 00:27 86 14 147/101 H 94 03/30/25 23:30 83 18 163/107 H 94 03/30/25 20:34 72 03/30/25 20:33 79 19 154/101 H 95 O2 Del Method 03/31/25 04:30 03/31/25 02:47 Room Air 03/31/25 01:11 Room Air 03/31/25 00:27 Room Air 03/30/25 23:30 Room Air 03/30/25 20:34 03/30/25 20:33 Room Air Laboratory Results 03/31/25 03/30/25 Range/Units 05:49 19:08 WBC 11.00 H 12.54 H (4.8-10.8) K/ul RBC 5.10 5.76 (4.70-6.10) M/uL Hgb 15.5 17.5 (14.0-18.0) g/dl Hct 46.1 52.3 H (42.0-52.0) % MCV 90.4 90.8 (80.0-100.0) fL MCH 30.4 30.4 (25.0-34.0) pg MCHC 33.6 33.5 (32.0-36.0) g/dL RDW Std Deviation 48.8 H 49.3 H (36.4-46.3) fL RDW Coeff of Kermit 14.6 H 14.6 H (11.5-14.5) % Plt Count 168 201 (130-400) K/uL MPV 10.6 10.8 (9.4-12.4) fL Immature Gran % (Auto) 0.5 0.6 % Neut % (Auto) 74.1 72.3 % Lymph % (Auto) 16.7 19.6 % [place] % (Auto) 7.9 6.5 % Eos % (Auto) 0.4 0.6 % Baso % (Auto) 0.4 0.4 % Neut # (Auto) 8.15 H 9.07 H (1.40-6.50) K/uL Lymph # (Auto) 1.84 2.46 (1.20-3.40) K/uL [place] # (Auto) 0.87 H 0.82 H (0.11-0.59) K/uL Eos # (Auto) 0.04 0.07 (0.00-0.50) K/uL Baso # (Auto) 0.04 0.05 (0.00-0.20) K/uL Immature Gran # (Auto) 0.06 0.07 (0.01-0.20) K/uL PT 11.2 (9.0-12.0) Seconds INR 1.1 (0.9-1.1) APTT 29 (21-31) Seconds PTT Ratio 1.1 Sodium 140 140 (136-145) mmol/L Potassium 3.9 4.3 (3.5-5.1) mmol/L Chloride 106 102 (98-107) mmol/L Carbon Dioxide 24 30 (21-32) mmol/L Anion Gap 10 8 (3-11) BUN 22 24 H (6-23) mg/dl Creatinine 1.26 1.46 H (0.6-1.4) mg/dl Est Cr Clr Drug Dosing 72.4 66.3 ml/min eGFR 65.29 54.71 BUN/Creatinine Ratio 17.5 16.4 (10-20) Glucose 108 H 123 H (70-99(Fasting)) mg/dl Calcium 8.7 9.8 (8.6-10.3) mg/dl Magnesium 2.1 2.3 (1.7-2.4) mg/dl Total Bilirubin 0.6 0.7 (0.2-1.0) mg/dl AST 18 25 (13-39) U/L ALT 25 34 (7-52) U/L Alkaline Phosphatase 68 88 (34-104) U/L Troponin I High Sens 7.9 (0-20) pg/ml Total Protein 6.8 8.3 (6.0-8.3) gm/dl Albumin 3.8 4.4 (3.4-5.0) gm/dl Globulin 3.0 3.9 (2.5-4.0) gm/dl Albumin/Globulin Ratio 1.3 1.1 (0.9-2) Lipase 44 (11-82) U/L Urine Color Yellow Urine Appearance Clear (Clear) Urine pH 5.5 (4.5-7.5) Ur Specific [place] 1.026 (1.000-1.030) Urine Protein 1+ H (Negative) Urine Glucose (UA) Negative (Negative) Urine Ketones Trace H (Negative) Urine Blood Negative (Negative) Urine Nitrite Negative (Negative) Urine Bilirubin Negative (Negative) Urine Urobilinogen Negative (Negative) Ur Leukocyte Esterase 2+ H (Negative) Urine WBC (Auto) >50 H (0-5) /hpf Urine RBC (Auto) 0-2 (0-2) /hpf U Hyaline Cast (Auto) 0-2 (0-2) /lpf U Epithel Cells (Auto) 0-2 (0-2) /hpf Urine Bacteria (Auto) 1+ H (None Seen) Urine Comment Diagnostic Findings Exam(s): CT ABDOMEN + PELVIS With Contrast IV Amt: OPTIRAY 320 94ML EXAM: CT Abdomen and Pelvis With Intravenous Contrast CLINICAL HISTORY: bloated, vomiting. TECHNIQUE: Axial computed tomography images of the abdomen and pelvis with intravenous contrast. CTDI is 27.73 mGy and DLP is 1436.16 mGy-cm. Automated exposure control was utilized for the study. A dose lowering technique was utilized adhering to the principles of ALARA. CONTRAST: Patient received OPTIRAY 320 94ML of IV contrast COMPARISON: CT abdomen and pelvis without contrast 10/15/2024 FINDINGS: Lung bases: Unremarkable. No mass. No consolidation. ABDOMEN: Liver: Unremarkable. No mass. Gallbladder and bile ducts: Unremarkable. No calcified stones. No ductal dilation. Pancreas: Unremarkable. No mass. No ductal dilation. Spleen: Unremarkable. No splenomegaly. Adrenals: Unremarkable. No mass. Kidneys and ureters: Simple cortical cyst involving the inferior aspect of the left kidney, measuring 13.7 cm. The kidneys demonstrate normal enhancement without pyelonephritis or hydronephrosis. Stomach and bowel: At least moderate distention of the stomach with fluid and gas. There is multiple fluid and gas dilated small bowel loops throughout the left abdomen, measuring up to 4 cm in diameter. There is no cleared transition point identified. However, the distal small bowel in the right lower quadrant is asymmetrically decompressed. Minimal stool burden. Diverticulosis without definitive diverticulitis. With fluid distention of the duodenum, there is a focal bandlike area of soft tissue circumferentially noted about the duodenum near the junction of the descending in the distal transverse segment (series 300; images 38- 43). PELVIS: Appendix: The appendix is not clearly delineated. No secondary findings to suggest acute appendicitis. Bladder: Unremarkable. No mass. Reproductive: Unremarkable as visualized. ABDOMEN and PELVIS: Intraperitoneal space: Unremarkable. No free air. No significant fluid collection. Bones/joints: No acute fracture. No dislocation. Soft tissues: Unremarkable. Vasculature: Unremarkable. No abdominal aortic aneurysm. Lymph nodes: Unremarkable. No enlarged lymph nodes. IMPRESSION: 1. At least moderate distention of the stomach with fluid and gas. There is multiple fluid and gas dilated small bowel loops throughout the left abdomen, measuring up to 4 cm in diameter. There is no cleared transition point identified. However, the distal small bowel in the right lower quadrant is asymmetrically decompressed. While this may represent enteritis, a mid small bowel obstruction is not excluded. No pneumatosis or pneumoperitoneum. 2. With fluid distention of the duodenum, there is a focal bandlike area of soft tissue circumferentially noted about the duodenum near the junction of the descending in the distal transverse segment (series 300; images 38-43). Differential consideration includes incidental annular pancreatic tissue. Focal inflammation is considered less likely. I personally reviewed ct scan images and concur with above findings (2) Vomiting Nausea presence: with nausea Vomiting type: unspecified Qualified Code(s): R11.2 - Nausea with vomiting, unspecified
[2025-03-31] MEDS: METOPROLOL TARTRATE 1 MG/ML VIAL IV SCH (08:48)
[2025-03-31] MEDS: CHLORASEPTIC (PHENOL) 1.4% SOLN 180 ML BTL MT PRN (08:48)
--- NOTE | 2025-03-31 12:23 | Hospitalist Progress Note ---
Date of Service March 31, 2025 Assessment & Plan (1) SBO (small bowel obstruction): Plan: Present on admission. Now resolving. NG tube is currently clamped. Appreciate general surgery consultation and recommendations. Hopefully the NG tube can be removed later today and clear liquid started. (2) Acute UTI: Plan: Awaiting urine culture results. Continue cefepime for now (3) Acute kidney injury: Plan: Mild on admission. Now corrected with IV fluids. Monitor intake and output. Serial labs (4) Paroxysmal atrial fibrillation: Plan: Telemetry. Currently on IV metoprolol. Amiodarone is on hold. Plan Hopeful discharge to home tomorrow, April 01. He may require oral antibiotics for several days pending results of urine culture Admission and Anticipated Discharge Date Admission Date: March 30, 2025 Subjective Suspected SBO present on admission appears to have resolved. Surgery consultation and recommendations appreciated. NG tube is now clamped and hopefully can be removed later today with initiation of clear liquid diet. He is currently on metoprolol intravenously and amiodarone drip. Eliquis is on hold. He remains n.p.o. with IV fluids. There may be concomitant UTI and he is on cefepime now. Urine culture is pending. Lasix, amiodarone and losartan are currently on hold. He is receiving metoprolol intravenously. Review of Systems 2 Review of Systems: Constitutionalno fever or chills ENTno blurred vision, no double vision, no epistaxis, no sore throat Respiratoryno cough, no wheezing, no shortness of breath Cardiacno palpitations, no chest pain, no syncope Yoav nausea, vomiting, diarrhea, melena, hematochezia GUno urinary retention, no urinary incontinence, no dysuria, no hematuria Musculoskeletalno joint pain, no muscle tenderness Skinno bruising, no rashes, no pruritus Neurono isolated weakness, no paresthesia, no weakness Psychno depression, no anxiety Physical Exam 2 Physical Exam: General-alert and oriented x3, no fever, no chills HEENT-head atraumatic and normocephalic, pupils equal and reactive to light, extraocular muscles intact. Nasogastric tube in place Neck-no lymphadenopathy or thyromegaly, trachea midline Chest-clear to auscultation. No rales, wheezing or rhonchi Cardiac-regular rate and rhythm, normal S1 and S2 Abdomen-abdomen is mildly distended. Bowel sounds are hypoactive but present. No focal tenderness. No masses. No hepatosplenomegaly Extremities-no cyanosis, clubbing, or edema Neuro-cranial nerves II through XII intact, motor and sensory function within normal limits, strength symmetrical, no focal deficits Psych-normal affect, normal mood Results & Data Results & Data Vital Signs (Past 12 Hours) Vital Signs Temp Pulse Pulse Resp BP BP Pulse Ox 03/31/25 12:15 61 03/31/25 11:54 36.8 C 64 18 143/87 H 93 03/31/25 09:03 67 03/31/25 07:52 36.7 C 81 18 154/94 H 93 03/31/25 07:07 86 03/31/25 04:30 88 03/31/25 02:47 77 16 129/85 95 03/31/25 01:11 36.7 C 82 16 170/105 H 95 03/31/25 00:27 86 14 147/101 H 94 O2 Del Method 03/31/25 12:15 03/31/25 11:54 Room Air 03/31/25 09:03 03/31/25 07:52 Room Air 03/31/25 07:07 03/31/25 04:30 03/31/25 02:47 Room Air 03/31/25 01:11 Room Air 03/31/25 00:27 Room Air Laboratory Results 03/31/25 05:49 03/31/25 05:49 PG Care Time/CCT Total # of Minutes Spent Total Time Spent with Patient: Total time spent is greater than 50% in coordination of care (as documented) at patient's floor/unit and/or counseling patient: Coding Level of Care Code 53789 SUB INP/OBS CARE 3/50MIN Diagnoses SBO (small bowel obstruction) K56.609 Acute UTI N39.0 Acute kidney injury N17.9 Paroxysmal atrial fibrillation I48.0
--- NOTE | 2025-03-31 15:40 | Electrocardiogram Report ---
Test Reason : Blood Pressure : */* mmHG Vent. Rate : 76 BPM Atrial Rate : 76 BPM P-R Int : 162 ms QRS Dur : 92 ms QT Int : 396 ms P-R-T Axes : 41 -7 -9 degrees QTcB Int : 445 ms Normal sinus rhythm Inferior infarct , age undetermined Nonspecific T wave abnormality Anterolateral leads Abnormal ECG When compared with ECG of 16-Dec-2024 09:11, Vent. rate has increased by 26 bpm Confirmed by Dorian Draper ([id number]) on 03/31/2025 3:40:44 PM Referred By: REFERRED SELF Confirmed By: Dorian Draper
[2025-04-01 06:04] LABS: Hematocrit (blood only) 44.7 % (42.0-52.0); Hemoglobin 14.4 g/dl (14.0-18.0); Immature Granulocytes # (auto) 0.06 K/uL (0.01-0.20); Immature Granulocytes % (auto) 0.7 %; Mean Corpuscular Hemoglobin 29.3 pg (25.0-34.0); Mean Corpuscular Volume 90.9 fL (80.0-100.0); Platelet Count 162 K/uL (130-400); RDW Standard Deviation 49.3 fL (36.4-46.3); Red Blood Count 4.92 M/uL (4.70-6.10); White Blood Count 8.81 K/ul (4.8-10.8)
[2025-04-01 06:19] LABS: Alanine Aminotransferase 20.0 U/L (7-52); Albumin Globulin Ratio 1.4 (0.9-2); Albumin Level 3.8 gm/dl (3.4-5.0); Alkaline Phosphatase 61.0 U/L (34-104); Anion Gap 8.0 (3-11); Bilirubin,Total 0.7 mg/dl (0.2-1.0); Blood Urea Nitrogen 21.0 mg/dl (6-23); Calcium 8.6 mg/dl (8.6-10.3); Carbon Dioxide 25.0 mmol/L (21-32); Chloride 105.0 mmol/L (98-107); Creatinine Clr Calc Pharmacy 67.2 ml/min; Globulin 2.8 gm/dl (2.5-4.0); Glucose 87.0 mg/dl (70-99(Fasting)); Potassium 3.8 mmol/L (3.5-5.1); Sodium 138.0 mmol/L (136-145); Total Protein 6.6 gm/dl (6.0-8.3)
[2025-04-01 06:38] VITALS: O2SAT 96
[2025-04-01 07:34] VITALS: RESP 18
--- NOTE | 2025-04-01 09:56 | Surgery Progress Note ---
Date of Service April 01, 2025 Assessment & Plan (1) SBO (small bowel obstruction): Plan: He seems improved and is tolerating clear liquids Can advance his diet as tolerated can discharge later today from a surgical standpoint if he does tolerate low fiber diet Surgery will sign off at this time, please call with any questions or concerns Admission and Anticipated Discharge Date Admission Date: March 30, 2025 Subjective Patient seen and examined. Has had some bowel movements. States is passing a lot of flatus. No nausea or vomiting of the last 2 days. Denies abdominal pain. Afebrile. Review of Systems Constitutional: no fever and no chills Eyes: no blind spots and no corrective lenses Respiratory: no cough and no dyspnea Cardiovascular: no chest pain and no dyspnea on exertion Gastrointestinal: no abdominal pain, no nausea and no vomiting Integumentary: no acne and no lesions Psychiatric: no behavioral changes and no anhedonia Physical Exam Constitutional: WD/WN, vitals as above Respiratory: normal respiratory effort, lungs clear to auscultation Cardiovascular: RRR, no murmur, no edema Gastrointestinal (Abdomen): normal bowel sounds, soft, nontender, no hepatosplenomegaly Psychiatric: A+Ox3, euthymic affect Results & Data Vital Signs (Past 12 Hours) Vital Signs Temp Pulse Pulse Resp BP BP Pulse Ox 04/01/25 08:30 57 L 146/91 H 04/01/25 08:15 64 146/93 H 04/01/25 08:14 64 04/01/25 07:34 37.1 C 53 L 18 146/93 H 96 04/01/25 07:11 66 04/01/25 05:35 66 04/01/25 04:50 62 04/01/25 02:29 36.9 C 57 L 16 133/87 93 04/01/25 01:31 71 04/01/25 01:29 61 04/01/25 01:01 04/01/25 00:55 70 03/31/25 22:44 37.5 C 69 16 161/93 H 92 Pulse Ox O2 Del Method O2 Del Method 04/01/25 08:30 04/01/25 08:15 04/01/25 08:14 04/01/25 07:34 Room Air 04/01/25 07:11 04/01/25 05:35 04/01/25 04:50 04/01/25 02:29 Room Air 04/01/25 01:31 04/01/25 01:29 04/01/25 01:01 96 Room Air 04/01/25 00:55 03/31/25 22:44 Room Air PG Care Time/CCT Total # of Minutes Spent Total Time Spent with Patient: Total time spent is greater than 50% in coordination of care (as documented) at patient's floor/unit and/or counseling patient: Coding Level of Care Code 20234 SUB INP/OBS CARE 07/13MIN Diagnoses SBO (small bowel obstruction) K56.609
[2025-04-01] MEDS: AMIODARONE 200 MG TAB PO SCH (10:17)
[2025-04-01 11:35] VITALS: BP 138/85; TEMP 97.7
--- NOTE | 2025-04-01 13:17 | Discharge Summary ---
Discharge Summary Date of Service April 01, 2025 Principal Dx & Hospital Course #1 = Principal Diagnosis (1) SBO (small bowel obstruction): Present on admission. Now resolved. NG tube i has been removed. Appreciate general surgery consultation and recommendations. Diet has been advanced and well-tolerated. He has had several bowel movements now. (2) Acute UTI: E. coli isolated in urine. He was treated with 3 days of parenteral cefepime while hospitalized. (3) Acute kidney injury: Mild on admission. Now corrected with IV fluids. Monitor intake and output. Serial labs (4) Paroxysmal atrial fibrillation: Telemetry. Intravenous metoprolol switched back to his usual carvedilol dosage. Amiodarone has been restarted. Plan Home today, April 01. Admission HPI Per Admitting Provider The patient is a 59-year-old male with a past medical history including paroxysmal atrial fibrillation, paroxysmal atrial flutter, nocturnal hypoxemia, severe AIDA, status post ablation of atrial flutter, status post ablation of atrial fibrillation, pulmonary hypertension, obesity, hypertension, GERD, cardiomyopathy, BPH with LUTS, and aortic and mitral regurgitation. The patient presents to the emergency department with 2 days of diffuse abdominal pain, abdominal bloating, vomiting, including vomiting bile. He was concerned that he might have food poisoning, as he ate some leftovers that were borderline, and shortly after that began to feel poorly. He denies any cough, shortness of breath, fevers or chills. He denies any recent travels or sick exposures. He has a history of a previous appendectomy. He denies any previous occurrences of this type of discomfort. In the emergency department, workup included a CT scan of abdomen pelvis which was consistent with a partial small bowel obstruction. Laboratories included a elevated white blood cell count of 12.54, and elevated creatinine 1.46, baseline 1.09. EKG showed atrial fibrillation with controlled rate. Urinalysis suggested possible urinary tract infection with a history of previous urinary tract infections. From the ED the patient received the following: Normal saline 1 L fluid bolus, ceftriaxone 2 g IV, morphine 4 mg IV, Zofran 4 mg IV, Phenergan 6.25 mg IV, and famotidine 20 mg IV. The patient was then referred for admission to the [facility]ist service for further evaluation and treatment. Discharge Exam General-alert and oriented x3, no fever, no chills HEENT-head atraumatic and normocephalic, pupils equal and reactive to light, extraocular muscles intact. Nasogastric tube in place Neck-no lymphadenopathy or thyromegaly, trachea midline Chest-clear to auscultation. No rales, wheezing or rhonchi Cardiac-regular rate and rhythm, normal S1 and S2 Abdomen-abdomen is mildly distended. Bowel sounds are hypoactive but present. No focal tenderness. No masses. No hepatosplenomegaly Extremities-no cyanosis, clubbing, or edema Neuro-cranial nerves II through XII intact, motor and sensory function within normal limits, strength symmetrical, no focal deficits Psych-normal affect, normal mood Discharge Plan Discharge Items Patient Disposition: Home - Self-Care Reason For Visit: PSBO, PAF, CHRIS Discharge Diagnosis: Small bowel obstruction, acute kidney injury, UTI Condition on Discharge: Good Activity: As commented below Activity Comment: May return to work April 03, without restriction Non-emergency contact: Primary Care Provider Call non-emergency contact if: your symptoms worsen Follow-up/Referrals: Nicolas Alvarenga MD [Primary Care Provider] - Diet: Regular and Heart Healthy Addtl Attending Provider Instructions: Take stool softener docusate 100 mg twice daily. All medications remain the same. May return to work without restriction on April 03. See primary care provider within 1 week or as soon as possible for follow-up Pending Studies at Discharge: No Stand-Alone Forms: My [facility] [employer], Work/School Release, Smoking Cessation Medications and DC Order Prescriptions: New docusate sodium 100 mg capsule 100 mg PO BID Qty: 1 0RF Continued losartan 100 mg tablet 100 mg PO QAM Qty: 90 3RF Eliquis 5 mg tablet 5 mg PO BID Qty: 180 3RF cholecalciferol (vitamin D3) 2,000 unit capsule 2,000 units PO QPM amiodarone 200 mg tablet 200 mg PO QAM carvedilol 6.25 mg tablet 6.25 mg PO BID Qty: 180 3RF Rx Instructions: must administer with a meal/food furosemide 20 mg tablet 20 mg PO DAILY PRN (Reason: Fluid Retention) Rx Instructions: 2 - 3 LB WEIGHT GAIN zinc acetate 50 mg (zinc) Capsule 50 mg PO QPM Discharge Orders: Discharge Order (Routine); Ordered 04/01/25 Ordered By: Inderjit Allen Admission Data Admit Date/Time: 03/30/25 23:28 Attending Provider: Inderjit Allen Admit Provider: Colin Abernathy Primary Care Provider: Nicolas Alvarenga Other Providers: Rodney Ladd; Colin Abernathy Hospital Stay Data Consultations 03/30/25 22:28 ED Decision to Admit Stat 03/30/25 23:28 Consult General Surgery Routine Diagnostic Imagining Performed 03/30/25 20:42 CT abd pelvis IV con only Stat Pending Results Patient Have Any Pending Studies at Discharge: No Discharge Instructions Given to Patient (Per Discharging Provider) Take stool softener docusate 100 mg twice daily. All medications remain the same. May return to work without restriction on , April 03. See primary care provider within 1 week or as soon as possible for follow-up Total Time Total Time Spent Total Time Spent (In Minutes): 45 minutes Coding Level of Care Code 30811 INP/OBS DISCH >30 MIN Diagnoses SBO (small bowel obstruction) K56.609 Acute UTI N39.0 Acute kidney injury N17.9 Paroxysmal atrial fibrillation I48.0
[2025-04-01 14:21] VITALS: PULSE 50
== END 2025-04-01 14:59 | disposition home or self-care (01) | DRG 389 ==
LOC: SUATTDRO → ED 18:49 → 4W 23:28 → SUATTDRO 23:28 → 4W 03-31 00:27